=== PATIENT | female | born 1995 | race Two or more races ===

== ENCOUNTER 2018-08-06 02:44 | Emergency (ER) | payer OTHER ==
[~2018-08-06] VITALS: Ht 157.5 cm; Wt 47.6 kg
[2018-08-06 02:55] VITALS: BP 102/65
[2018-08-06] MEDS ORDERED: HYDROCODON-ACE1 EA15 ORAL (03:07)
[2018-08-06] MEDS ORDERED: IBUPROFEN600 MG ORAL (03:07)
[2018-08-06] MEDS ORDERED: CEFUROXIME500 MG PO (03:08)
[2018-08-06] MEDS ORDERED: PSEUDOEPHEDRINE60 MG PO (03:08)
--- NOTE | 2018-08-06 03:09 | Emergency Room Report ---
History of Present Illness General Chief Complaint: Earache Source: Patient Present Illness HPI Is a 23-year-old female with no past medical she presents with chief complaint of left ear pain. She saw Dr. barrientos care 2 days ago and prescribe amoxicillin twice a day. She has some congestion and no problem with breathing or coughing. Pain got worse tonight. Throbbing in nature. Radiating to her neck and jaw. 9 out of 10. Worse with sneezing and coughing. No fever or chills. Allergies: Coded Allergies: No Known Allergies (Unverified , 08/06/18) Patient History Past Medical History: see triage record, old chart reviewed Past Surgical History: none Pertinent Family History: none Social History: Denies: smoking Last Menstrual Period: 07/28/2018 Now: No Immunizations: other Reviewed Nursing Documentation: PMH: Agreed; PSxH: Agreed Nursing Documentation-PMH Past Medical History: No Stated History Review of Systems Eye: Denies: eye pain, blurred vision ENT: Reports: ear pain; Denies: nose congestion, throat swelling Respiratory: Denies: cough, shortness of breath Cardiovascular: Denies: chest pain, palpitations Gastrointestinal: Denies: abdominal pain, diarrhea, nausea, vomiting Musculoskeletal: Denies: back pain, joint pain Skin: Denies: rash Neurological: Denies: headache, numbness Endocrine: Denies: increased thirst, increased urine Hematologic/Lymphatic: Denies: easy bruising All Other Systems: negative except mentioned in HPI Physical Exam Vital Signs Date Time Temp Pulse Resp B/P (MAP) Pulse Ox O2 Delivery O2 Flow Rate FiO2 08/06/18 02:46 98.3 73 16 101/68 98 Room Air 98.2 vitals normal Sp02 EP Interpretation: reviewed, normal General Appearance: well appearing, no apparent distress, alert Head: normocephalic, atraumatic Eyes: bilateral eye PERRL, bilateral eye EOMI ENT: hearing grossly normal, normal pharynx, other - Right TM with mild erythema. Neck: full range of motion, supple, no meningismus Respiratory: chest non-tender, lungs clear, normal breath sounds Cardiovascular #1: regular rate, rhythm, no murmur Gastrointestinal: normal bowel sounds, non tender, no mass, no organomegaly, no bruit, non-distended Musculoskeletal: back normal, gait/station normal, normal range of motion Psychiatric: mood/affect normal Skin: warm/dry Medical Decision Making Diagnostic Impression: Primary Impression: Otitis media Qualified Codes: H66.002 - Acute suppurative otitis media without spontaneous rupture of ear drum, left ear ER Course Patient with left otitis media. We'll switch antibiotic class. No evidence of perforation. No evidence of sepsis or mastoiditis. Last Vital Signs Date Time Temp Pulse Resp B/P (MAP) Pulse Ox O2 Delivery O2 Flow Rate FiO2 08/06/18 02:46 98.3 73 16 101/68 98 Room Air 98.2 Status: improved Disposition: HOME, SELF-CARE Condition: Stable Scripts Pseudoephedrine Hcl* (SUDAFED*) 60 Mg Tablet 60 MG PO Q6H, #20 TAB Prov: Miguel Mejia MD 08/06/18 Cefuroxime Axetil* (CEFUROXIME*) 500 Mg Tablet 500 MG PO Q12HR, #14 TAB Prov: Miguel Mejia MD 08/06/18 Ibuprofen* (MOTRIN*) 600 Mg Tablet 600 MG ORAL THREE TIMES A DAY, #30 TAB 0 Refills Prov: Miguel Mejia MD 08/06/18 Hydrocodone/Acetaminophen 5-325* (HYDROCODONE/ACETAMINOPHEN 5-325*) 1 Each Tablet 1 TAB ORAL Q6H PRN for For Pain, #15 TAB 0 Refills Prov: Miguel Mejia MD 08/06/18 Patient Instructions: Otitis Media, Adult, [id number] Additional Instructions: Avoid blowing nose. Follow-up your doctor in 3-5 days for recheck. Return if worse. Miguel Mejia MD Aug 06, 2018 03:09
[2018-08-06] MEDS ORDERED: Ketorolac 30mg Inj IV ONE (03:15)
[2018-08-06] MEDS ORDERED: cefTRIAXone 1 GM in NS 55 ML IVPB ONE (03:15)
[2018-08-06 04:00] VITALS: BP 104/63
== END 2018-08-06 04:00 | disposition home or self-care (01) ==
LOC: EMR 02:59
DX: H66.002 Acute suppurative otitis media without spontaneous rupture of ear drum, left ear (principal); H92.02 Otalgia, left ear
CPT/HCPCS: 96365; 96375; 99284; J0696; J1885

== ENCOUNTER 2019-02-02 14:41 | Emergency (ER) | payer OTHER ==
[~2019-02-02] VITALS: Ht 157.5 cm; Wt 49.9 kg
[~2019-02-02 14:41] MED LIST: CEFUROXIME500 MG PO; HYDROCODON-ACE1 EA15 ORAL; IBUPROFEN600 MG ORAL; PSEUDOEPHEDRINE60 MG PO
[2019-02-02] MEDS ORDERED: ADDERALL 10 MG10 MG ORAL (14:50)
--- NOTE | 2019-02-02 15:07 | NUR ---
ED Nurse Note:pt. went to bathroom but coudn't produce any urine
[2019-02-02 15:13] VITALS: BP 104/73
[2019-02-02] MEDS ORDERED: Mylanta II UD 30ml ORAL ONE (15:15)
[2019-02-02] MEDS ORDERED: Lidocaine 2% Visc 15ml soln ORAL ONE (15:15)
--- NOTE | 2019-02-02 15:24 | Emergency Room Report ---
History of Present Illness General Chief Complaint: Nausea Source: Patient Present Illness HPI 23-year-old female presents to the emergency department with chief complaint of nausea, vomiting and earning epigastric pain times over 8 months. Patient reports that nausea has been coming more frequent she states that earlier today she was meeting with her therapist who adjusted to the patient that the cause of her symptoms may be due to thinning of the lining of her stomach. Patient presents because she is concerned and wants to be evaluated for this. denies abdominal pain at this time denies abdominal tenderness. Reports she has a history of appendicitis and had appendectomy performed in the past. She states her symptoms are worse after eating and worse at night as well as waking up in the morning. Denies she denies fevers, chills, recent travel or ill contacts with similar symptoms. Patient denies blood in the vomit she denies black tarry stools or blood in the stool. Patient reports history of allergies to milk/dairy products. She denies head trauma, history of TBI or other significant past medical history. Denies CP, Palpitations, LOC, AMS, dizziness , Changes in Vision, Sensation, paresthesias, or a sudden severe headache. Allergies: Coded Allergies: No Known Allergies (Unverified , 08/06/18) Patient History Past Medical History: see triage record Past Surgical History: none Pertinent Family History: none Last Menstrual Period: last week Now: No Reviewed Nursing Documentation: PMH: Agreed; PSxH: Agreed Nursing Documentation-PMH History Of Psychiatric Problem: Yes Review of Systems All Other Systems: negative except mentioned in HPI Physical Exam Vital Signs Date Time Temp Pulse Resp B/P (MAP) Pulse Ox O2 Delivery O2 Flow Rate FiO2 02/02/19 14:46 98.1 91 20 104/73 100 Room Air Sp02 EP Interpretation: reviewed, normal General Appearance: no apparent distress, alert, GCS 15, non-toxic Head: normocephalic, atraumatic Eyes: bilateral eye normal inspection, bilateral eye PERRL ENT: hearing grossly normal, normal voice Neck: full range of motion Respiratory: lungs clear, normal breath sounds, speaking full sentences Cardiovascular #1: regular rate, rhythm Gastrointestinal: normal bowel sounds, non tender, soft, non-distended, no guarding Musculoskeletal: gait/station normal, normal range of motion, non-tender Neurologic: alert, oriented x3, responsive, motor strength/tone normal, sensory intact, speech normal, grossly normal Psychiatric: judgement/insight normal Skin: normal color, no rash, warm/dry, well hydrated Lymphatic: no adenopathy Medical Decision Making PA Attestation Dr. Ambrocio is my supervising Physician whom patient management has been discussed with. Diagnostic Impression: Primary Impression: Nausea and vomiting in adult patient Additional Impression: Acid reflux Qualified Codes: K21.9 - Gastro-esophageal reflux disease without esophagitis ER Course 23-year-old female presents to the emergency department with chief complaint of nausea, vomiting and earning epigastric pain times over 8 months. Patient reports that nausea has been coming more frequent she states that earlier today she was meeting with her therapist who adjusted to the patient that the cause of her symptoms may be due to thinning of the lining of her stomach. Patient presents because she is concerned and wants to be evaluated for this. denies abdominal pain at this time denies abdominal tenderness. Reports she has a history of appendicitis and had appendectomy performed in the past. She states her symptoms are worse after eating and worse at night as well as waking up in the morning. Denies she denies fevers, chills, recent travel or ill contacts with similar symptoms. Patient denies blood in the vomit she denies black tarry stools or blood in the stool. Patient reports history of allergies to milk/dairy products. She denies head trauma, history of TBI or other significant past medical history. Denies CP, Palpitations, LOC, AMS, dizziness , Changes in Vision, Sensation, paresthesias, or a sudden severe headache. Ddx considered but are not limited to Acid Reflux, infectious gastritis, UC, PUD , GE, pancreatitis, gallstone, , ovarian torsion, ectopic just to name a few. Vital signs: are WNL, pt. is afebrile H&PE are most consistent with acid reflux with gastritis, this patient is nontoxic in appearance in no acute distress and given the chronicity of the symptoms I do not feel she is presenting with an acute emergent condition. Will check for and administer GI medications. ORDERS: -URINE HCG:-----she declines she states she is not able to urinate at this time and she is not concerned for . ED INTERVENTIONS: -PO zofran 4mg. -G cocktail -I do not identify an emergent condition at this time. With current presentation , pt. is stable for close outpatient follow up and conservative treatment. D/ w pt. to return promptly to ED with worsening or new symptoms.- Pt. verbalizes' understanding and agreement with proposed treatment plan.proposed treatment plan. DISCHARGE: At this time pt. is stable for d/c to home. Will provide printed patient care instructions, and any necessary prescriptions. Care plan and follow up instructions have been discussed with the patient prior to discharge. Last Vital Signs Date Time Temp Pulse Resp B/P (MAP) Pulse Ox O2 Delivery O2 Flow Rate FiO2 02/02/19 15:13 98.1 69 20 104/73 100 Room Air Status: improved Disposition: HOME, SELF-CARE Condition: Stable Scripts Ranitidine Hcl* (ZANTAC*) 150 Mg Tablet 150 MG ORAL TWICE A DAY for 7 Days, #14 TAB Prov: Zoë Zaldivar 02/02/19 Ondansetron Odt* (ZOFRAN ODT*) 4 Mg Tab.rapdis 4 MG BC EVERY 6 HOURS PRN for Nausea & Vomiting, #10 TAB 0 Refills Prov: Zoë Zaldivar 02/02/19 Patient Instructions: Nausea and Vomiting, Adult Additional Instructions: Take medications as directed. Follow up with a Primary Care Provider in 3-5 days, even if your symptoms have resolved. GI SPECIALIST REFERRAL --Please review list of primary care clinics, if you do not already have a primary care provider Return sooner to ED if new symptoms occur, or current symptoms become worse. - Please note that this Emergency Department Report was dictated using [employer] technology software, occasionally this can lead to erroneous entry secondary to interpretation by the dictation equipment. Zoë Zaldivar Feb 02, 2019 15:24
[2019-02-02 15:42] VITALS: BP 104/73
[2019-02-02] MEDS ORDERED: ONDANSETRON ODT4 MG BC (15:43)
[2019-02-02] MEDS ORDERED: ZANTAC150 MG ORAL (15:43)
--- NOTE | 2019-02-02 15:43 | NUR ---
ER DISCHARGE NOTE: Patient is cleared to be discharged per ERMD, pt is aox4, on room air, with stable vital signs. pt was given dc and prescription instructions, pt was able to verbalize understanding, pt is able to ambulate with steady gait. pt took all belongings.
== END 2019-02-02 15:42 | disposition home or self-care (01) ==
LOC: EMR 15:10
DX: R11.2 Nausea with vomiting, unspecified (principal); K21.9 Gastro-esophageal reflux disease without esophagitis
CPT/HCPCS: 99282